=== PATIENT | female | born 1985 | race Caucasian/White ===

== ENCOUNTER 2025-01-31 18:30 | Emergency (ER) | payer BC ==
[~2025-01-31] VITALS: Ht 172.7 cm; Wt 77.1 kg
[2025-01-31] MEDS ORDERED: KETOROLAC TROMETHAMINE INJ 30 MG/ML VIAL ONE (19:54)
[2025-01-31] MEDS: KETOROLAC TROMETHAMINE INJ 30 MG/ML VIAL IM ONE (19:57)
[2025-01-31] MEDS ORDERED: CEPH-570 PO (20:44)
[2025-01-31] MEDS ORDERED: HYDR-4209 PO (21:21)
[2025-01-31 22:28] VITALS: BP 124/81; TEMP 98.7; O2SAT 98
== END 2025-01-31 21:50 | disposition home or self-care (01) ==
LOC: ER 18:34
DX: M25.571 Pain in right ankle and joints of right foot (principal); X50.1XXA Overexertion from prolonged static or awkward postures, initial encounter; Y93.41 Activity, dancing; Y92.89 Other specified places as the place of occurrence of the external cause; Y99.8 Other external cause status
CPT/HCPCS: 99283; 96372; 73630; J1885